=== PATIENT | female | born 1950 | race Caucasian/White ===

== ENCOUNTER 2016-10-04 09:25 | Emergency (ER) | payer OTHER ==
[~2016-10-04] VITALS: Ht 170.2 cm; Wt 54.5 kg
[~2016-10-04 09:25] MED LIST: BUSP15 PO; OXYB5 PO; TRIL2 PO; TRIL4 PO
[2016-10-04] MEDS ORDERED: IPRATROPIUM BROMIDE 0.5 MG/2.5 ML NEB SOLUTION NEB ONE (10:30)
[2016-10-04] MEDS ORDERED: ALBUTEROL SULFATE 2.5 MG/0.5 ML NEB SOLUTION NEB ONE (10:30)
[2016-10-04 11:29] VITALS: BP 127/69
== END 2016-10-04 12:24 | disposition home or self-care (01) ==
LOC: EMS 09:29
DX: N39.0 Urinary tract infection, site not specified (principal); J44.9 Chronic obstructive pulmonary disease, unspecified; F17.210 Nicotine dependence, cigarettes, uncomplicated; F20.9 Schizophrenia, unspecified; Z90.49 Acquired absence of other specified parts of digestive tract
CPT/HCPCS: 94640; 99283

== ENCOUNTER 2023-10-03 15:31 | Emergency (ER) | payer OTHER ==
[~2023-10-03] VITALS: Ht 167.6 cm; Wt 81.8 kg
[~2023-10-03 15:31] MED LIST changes: -OXYB5 PO; +OXYB5TAB20 PO; -TRIL2 PO; -TRIL4 PO
[2023-10-03 15:34] VITALS: BP 111/58; PULSE 96; RESP 18; TEMP 98.4
== END 2023-10-03 18:41 | disposition left against medical advice (07) ==
LOC: EMS 15:31
DX: H92.01 Otalgia, right ear (principal); H92.02 Otalgia, left ear; Z53.21 Procedure and treatment not carried out due to patient leaving prior to being seen by health care provider